=== PATIENT | male | born 1960 ===

== ENCOUNTER 2020-12-01 15:17 | Emergency (ER) | payer BC ==
[2020-12-01] MEDS ORDERED: Sodium Chloride 0.9% 10 ML Syringe FLUSH PRN (15:35)
--- NOTE | 2020-12-01 15:35 | EDM.PDOC ---
ED HPI GENERAL MEDICAL PROBLEM - General Chief Complaint: Abdominal Pain Stated Complaint: ABDOMINAL DISCOMFORT Time Seen by Provider: 12/01/20 15:25 Source of Information: Reports: Patient, Family (). Denies: Old Records ( no [facility] records available ) History Limitations: Reports: No Limitations - History of Present Illness INITIAL COMMENTS - FREE TEXT/NARRATIVE: The patient was brought to the emergency room via private automobile by his after a brief evaluation by Addy Cruz PA-C, at the [facility] in [place], shortly prior to arrival to our facility. No blood work, x-rays, or treatment were conducted at that clinic prior to his transfer with patient also not taking any medications for his recent symptoms to this point. The patient has a 3-week history of progressive severe constipation with last good bowel movement about 4 days ago with patient having occasional mild thin watery stools since that time, including earlier this morning. He does complain of intermittent nausea with 3 episodes of emesis 2 days ago with no nausea or emesis at this time. He has nonspecific diffuse 23/10 abdominal aches with no gross hematuria, colic, or other UTI symptoms. No recent history of heartburn, significant diarrhea, melena, gross hematochezia, or any food intolerance, including fatty foods, etc.. The patient denies any chest pain/pressure, heart flutter, dizziness, orthostasis, orthopnea, diaphoresis, paresthesias, recent decreased exercise tolerance, or any other anginal-type symptoms. The patient also denies any recent fever, wheezing, etc., although nonspecific nonproductive cough and some progressive dyspnea during the last several days. He has had an unintentional 22 pound weight gain over the last 33 weeks with increasing progressive dependent edema. Onset: Gradual, Other Duration: Week(s): (3 weeks as above), Constant, Getting Worse Location: Reports: Abdomen. Denies: Head, Face, Neck, Chest, Back, Pelvis, Upper Extremity, Left, Upper Extremity, Right, Radiates to Quality: Reports: Ache Severity: Mild Improves with: Reports: None Worsens with: Reports: None Context: Reports: Other (As above). Denies: Sick Contact, Trauma Associated Symptoms: Reports: Nausea/Vomiting, Shortness of Breath. 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 [No Known Home Meds] 12/01/20 [History] Past Medical History HEENT History: Reports: Impaired Vision, Other (See Below). Denies: Allergic Rhinitis, Cataract, Glaucoma, Hard of Hearing, Head, Macular Degeneration, Otitis Media, Retinal Detachment, Sinusitis Other HEENT History: The patient does wear glasses. Cardiovascular History: Reports: Syncope, Other (See Below). Denies: Afib, Aneurysm, Arrhythmia, Blood Clots/VTE/DVT, CAD, Heart Failure, Heart Murmur, High Cholesterol, Hypertension, NM, PTCA, PVD Other Cardiovascular History: Syncopal episodes with alcohol intoxication. Respiratory History: Reports: Sleep Apnea, Other (See Below). Denies: Asthma, Bronchitis, Recurrent, COPD, Intubation, Difficult, Intubation, Previous, PE, Pneumonia, Recurrent, Pneumothorax, Pulmonary Fibrosis, TB Other Respiratory History: Patient is noncompliant with his CPAP secondary to intolerance. Gastrointestinal History: Reports: Hemorrhoids. Denies: Bowel Obstruction, Celiac Disease, Cholelithiasis, Chronic Constipation, Chronic Diarrhea, Cirrhosis, Colon Polyp, Diverticulosis, Fatty Liver, Fecal Incontinence, Gastritis, GERD, GI Bleed, Hepatitis, Helicobacter Pylori, Hiatal Hernia, Inflammatory Bowel Disease, Irritable Bowel Syndrome, Jaundice, Pancreatitis, PUD Genitourinary History: Reports: BPH. Denies: Acute Renal Failure, Chronic Renal Insuffiency, Renal Calculus, Retention, Urinary, STD, Urinary Incontinence, UTI, Recurrent Musculoskeletal History: Reports: Arthritis, Fracture, Osteoarthritis, Other (See Below). Denies: Amputation, Back Pain, Chronic, Gout, Neck Pain, Chronic, RA, SLE Other Musculoskeletal History: Right wrist fracture at about age 38 with surgeries as below. Neurological History: Reports: None. Denies: Alzheimers Disease, Cerebral Aneurysms, Concussion, Headaches, Chronic, Head Trauma, Migraines, MS, Neuropathy, Diabetic, Neuropathy, Peripheral, Parkinson's, Seizure, TIA Psychiatric History: Reports: Addiction, Anxiety, Depression, Other (See Below). Denies: Abuse, Victim of, ADD, ADHD, Alzheimers Disease, Dementia, Psych Hospitalization(s), PTSD, Suicide Attempt, Suicidal Ideation Other Psychiatric History: History of alcohol abuse for about 15 years with outpatient alcohol treatment and no alcohol use since 1990. Endocrine/Metabolic History: Reports: Obesity/BMI 30+. Denies: Diabetes, Type I, Diabetes, Type II, Diabetes Mellitus, Type 3c, Hypothyroidism, IDDM Hematologic History: Reports: None. Denies: Anemia, Blood Transfusion(s), Iron Deficiency Immunologic History: Reports: None. Denies: AIDS, HIV, SLE Oncologic (Cancer) History: Reports: None. Denies: Basal Cell Carcinoma, Colon, Hodgkin's Lymphoma, Leukemia, Lymphoma, Malignant Melanoma, Non-Hodgkin's Lymphoma, Prostate, Squamous Cell Carcinoma Dermatologic History: Reports: None. Denies: Eczema, Psoriasis - Infectious Disease History Infectious Disease History: Reports: Chicken Pox, Measles, Shingles (Right abdominal and back region at about age 38.). Denies: C-Difficile, Meningitis, Mononucleosis, MRSA, Mumps, Novel Coronavirus, Pertussis (Whooping Cough), Rheumatic Fever, Rubella, Scarlet Fever, TB, VRE - Past Surgical History Head Surgeries/Procedures: Reports: None HEENT Surgical History: Reports: Oral Surgery, Other (See Below). Denies: Cataract Surgery, Eye Surgery, Laser Surgery, LASIK, Myringotomy w Tube(s), Naso-Sinus Surgery, Radial Keratotomy, Tonsillectomy Other HEENT Surgeries/Procedures: Multiple teeth extractions. Cardiovascular Surgical History: Reports: None. Denies: Varicose Respiratory Surgical History: Reports: None. Denies: Thoracentesis GI Surgical History: Reports: None. Denies: Appendectomy, Cholecystectomy, Colonoscopy, EGD, Hernia, Abdominal, Hernia, Inguinal, Hernia Repair/Other Male Surgical History: Reports: None. Denies: Circumcision, TURP- Transurethral Resection of Prostate, Vasectomy Endocrine Surgical History: Reports: None. Denies: Thyroid Biopsy Neurological Surgical History: Reports: None. Denies: C-Spine, Discectomy, Laminectomy, Lumbar Spine, Sacral Spine, Spinal Fusion, Thoracic Spine, Vertebroplasty Musculoskeletal Surgical History: Reports: ORIF, Other (See Below). Denies: Arthroscopic Knee, Arthroscopic Procedure, Carpal Tunnel, Ganglion Cyst, Joint Replacement, Shoulder Replacement, Shoulder Surgery Other Musculoskeletal Surgeries/Procedures:: ORIF x2 of right wrist fracture at age 38. Oncologic Surgical History: Reports: None Dermatological Surgical History: Reports: None - Past Imaging History Past Imaging History: Reports: None Social & Family History - Family History HEENT: Reports: Cataract, Macular Degeneration, Other (See Below). Denies: Glaucoma, Retinal Detachment Other HEENT Family History: Mother with cataracts and macular degeneration. Cardiac: Reports: Arrhythmia, CAD, High Cholesterol, Hypertension, NM, Pacemaker, Other (See Below). Denies: Afib, Aneurysm, Blood Clots/VTE/DVT, Heart Failure, Heart Murmur, PVD/COD, Syncope Other Cardiac Family History: Father with history of possible NM in his 60s with no PTCA/stent or CABG, however possible unknown type of cardiac arrhythmia requiring pacemaker at that time. Sister with hypertension and hyperlipidemia. Respiratory: Reports: None. Denies: Asthma, COPD, PE, Pneumothorax, Sleep Apnea GI: Reports: GI bleed, PUD, Other (See Below). Denies: Celiac Disease, Cholelithiasis, Colon Polyps, Inflammatory Bowel Disease, Irritable Bowel Syndrome Other GI Family History: Father with peptic ulcer disease and upper GI bleed with no transfusions required. : Reports: None. Denies: Renal Calculus, Renal Disease/Insufficiency OBGYN: Reports: None Musculoskeletal: Reports: None. Denies: Arthritis, Gout, RA, SLE Neurological: Reports: None. Denies: Alzheimers Disease, Cerebral Aneurysms, CVA, Dementia, Migraines, MS, Parkinson's, Seizure, TIA, Vertigo Psychiatric: Reports: None. Denies: Abuse, Victim of, ADD, ADHD, Anxiety, Depression, Psych Hospitalization(s), PTSD, Suicide Attempt Endocrine/Metabolic: Reports: None. Denies: Diabetes, Type I, Diabetes, type II, Diabetes Mellitus, Type 3c, Hypothyroidism, IDDM Hematologic: Reports: None. Denies: Anemia Immunologic: Reports: None. Denies: AIDS, HIV, SLE Dermatologic: Reports: None. Denies: Eczema, Psoriasis Oncologic: Reports: Lung, Metastatic, Other (See Below). Denies: Cervix, Colon, Esophageal, Hodgkin's Lymphoma, Leukemia, Lymphoma, Non-Hodgkin's Lymphoma, Prostate, Renal, Skin Other Oncologic Family History: Mother with fatal lung cancer with adrenal metastases-? at age 76 with history of previous tobacco use. - Tobacco Use Tobacco Use Status *Q: Former Tobacco User Tobacco Use Within Last Twelve Months: No Years of Tobacco use: 22 Packs/Tins Daily: 1 Packs/Tins Daily Comment: Smoked between ages 11 and 33 with no use since 1995. Used Tobacco, but Quit: Yes Smoking Cessation Information Provided To Patient: No Second Hand Smoke Exposure: No Second Hand Smoke Education Provided: No - Caffeine Use Caffeine Use: Reports: Coffee (3 cups/day), Soda (34 sodas per week). Denies: Energy Drinks, Tea - Alcohol Use Alcohol Use History: Yes Days Per Week of Alcohol Use: 0 Number of Drinks Per Day Comment: Alcohol abuse history as above. Alcohol Use in Last Twelve Months: No - Recreational Drug Use Recreational Drug Use: Yes Drug Use in Last 12 Months: Yes Recreational Drug Type: Reports: Marijuana/Hashish (Heavily during his periods of alcohol abuse with only 2 times per year currently). 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 ED EXAM, GI/ABD - Physical Exam Exam: See Below Exam Limited By: No Limitations General Appearance: Alert, WD/WN, Moderate Distress Eyes: Bilateral: Normal Appearance (The patient is wearing glasses. No vertigo or nystagmus), EOMI (PERRLA) Ears: Normal External Exam, Normal Canal, Hearing Grossly Normal, Normal TMs Nose: Normal Inspection, Normal Mucosa, No Blood Throat/Mouth: Normal Lips, Normal Gums, Normal Oropharynx, Normal Voice, No Airway Compromise. No: Normal Teeth (Multiple missing teeth with additional broken teeth and caries into the gumline but no acute drainage, abscess, etc.), Dysphagia, Inflammation, Perioral Cyanosis Head: Atraumatic, Normocephalic. No: Facial Swelling, Facial Tenderness, Sinus Tenderness Neck: Normal Inspection, Supple, Non-Tender, Full Range of Motion. No: Carotid Bruit Respiratory/Chest: No Respiratory Distress, No Accessory Muscle Use, Chest Non- Tender, Rales (Mild bilateral basilar). No: Rhonchi, Wheezing, Pleural Rub, Accessory Muscle Use, Retractions Cardiovascular: Normal Peripheral Pulses, No Gallop, No JVD, No Murmur, No Rub, Extra Beats (PVCs versus PACs with aberrant conduction by monitor), Irregularly Irregular. No: Gallop/S3, Gallop/S4, Friction Rub GI/Abdominal Exam: No Abnormal Bruit, No Mass, Distended (Moderate to severe), Tender (Mild nonspecific diffuse palpation pain), Abnormal Bowel Sounds (Diffuse decreased breath sounds), Other (Obese. Abdominal anasarca.). No: Guarding, Rigid, Rebound (Male) Exam: Deferred Rectal (Males) Exam: Deferred Back Exam: Normal Inspection, Full Range of Motion. No: CVA Tenderness (L), CVA Tenderness (R), Muscle Spasm Extremities: Normal Range of Motion, Non-Tender, Normal Capillary Refill, Pedal Edema (+2 bilateral pedal/pretibial edema). No: Brandi's Sign Neurological: Alert, Oriented, CN II-XII Intact, Normal Cognition, Normal Gait, Normal Reflexes (Negative Babinski's), No Motor/Sensory Deficits Psychiatric: Normal Affect, Normal Mood Skin Exam: Warm, Intact, Normal Color, No Rash, Wound/Incision (Minimal drainage from umbilicus from patient's previous scratching). No: Diaphoretic Lymphatic: No Adenopathy #1 Interpretation EKG Date: 12/01/20 Time: 15:38 Rhythm: A-Fib (With occasional PVCs versus PACs with aberrant conduction) Rate (Beats/Min): 150 [place]: LAD-Left [place] Deviation (Extended left) P-Wave: Variable QRS: Normal (0.08 seconds) ST-T: Normal QT: Normal TX/PQ Interval: Variable Comparison: NA - No Prior EKG EKG Interpretation Comments: 1. No acute ischemic changes 2. Atrial fibrillation with rapid ventricular response 3. PVCs versus PACs with aberrant conduction #2 Interpretation EKG Date: 12/01/20 Time: 17:23 Rhythm: A-Fib Rate (Beats/Min): 126 [place]: RAD-Right [place] Deviation (Change from previous extended left cardiac axis) P-Wave: Variable QRS: Normal (0.08 seconds) ST-T: Normal QT: Normal TX/PQ Interval: Variable with extreme poor R wave progression in the anterior leads Comparison: Change From Previous EKG (As above since 15:38 hours today) EKG Interpretation Comments: 1. No acute ischemic changes 2. Atrial fibrillation with improved tachycardia and resolved PVCs Course - Vital Signs Last Recorded V/S: Last Vital Signs Temp 36.3 C 12/01/20 15:22 Pulse 140 H 12/01/20 18:00 Resp 23 H 12/01/20 18:00 BP 117/85 12/01/20 18:00 Pulse Ox 95 12/01/20 16:00 Vital Signs - 24 hr 12/01/20 12/01/20 12/01/20 15:22 15:36 16:00 Temperature [ 36.3 C Temporal] Pulse, Peripheral Pulse, 163 H 66 136 H Peripheral [ Left Pulse Oximetry] Respiratory 14 20 Rate Blood Pressure Blood Pressure 125/90 130/76 [Left Upper Arm ] O2 Sat by Pulse 96 95 Oximetry 12/01/20 12/01/20 12/01/20 16:30 16:39 17:25 Temperature [ Temporal] Pulse, 128 H 120 H Peripheral Pulse, 123 H Peripheral [ Left Pulse Oximetry] Respiratory 24 H Rate Blood Pressure 134/105 H 98/70 Blood Pressure 117/78 [Left Upper Arm ] O2 Sat by Pulse Oximetry 12/01/20 12/01/20 12/01/20 17:37 17:45 18:00 Temperature [ Temporal] Pulse, Peripheral Pulse, 150 H 93 140 H Peripheral [ Left Pulse Oximetry] Respiratory 22 H 21 H 23 H Rate Blood Pressure Blood Pressure 100/82 112/87 117/85 [Left Upper Arm ] O2 Sat by Pulse Oximetry - Orders/Labs/Meds Orders: Active Orders 24 hr Category Date Time Status Cardiac Monitoring [RC] . DIRECTED Care 12/01/20 15:36 Active EKG Documentation Completion [RC] ASDIRECTED Care 12/01/20 15:37 Active EKG Documentation Completion [RC] ASDIRECTED Care 12/01/20 17:21 Active Peripheral IV Care [RC] . DIRECTED Care 12/01/20 15:35 Active Nothing Per Oral Diet [DIET] Diet 12/01/20 Breakfast Active Abdomen Series w Chest 1V [CR] Stat Exams 12/01/20 15:35 Taken CULTURE BLOOD [BC] Stat Lab 12/01/20 15:48 Received CULTURE BLOOD [BC] Stat Lab 12/01/20 15:55 Received CULTURE URINE [RM] Stat Lab 12/01/20 15:35 Ordered DRUG SCREEN, URINE [URCHEM] Stat Lab 12/01/20 15:37 Ordered MISCELLANEOUS CULT [MREF] Routine Lab 12/01/20 16:08 Received UA W/MICROSCOPIC [URIN] Stat Lab 12/01/20 15:35 Ordered Enoxaparin [Lovenox] Med 12/01/20 16:45 Active 100 mg SUBCUT DAILY Sodium Chloride 0.9% [Saline Flush] Med 12/01/20 15:35 Active 10 ml FLUSH ASDIRECTED PRN Blood Culture x2 Reflex Set [OM.PC] Urgent Oth 12/01/20 15:35 Ordered Obtain Past Medical Record [OM.PC] Urgent Oth 12/01/20 15:35 Active Peripheral IV Insertion Adult [OM.PC] Stat Oth 12/01/20 15:35 Ordered Resuscitation Status Stat Resus Stat 12/01/20 15:35 Ordered Medication Orders Enoxaparin Sodium (Enoxaparin 100 Mg/1 Ml Syringe) 100 mg SUBCUT DAILY GA Last Admin: 12/01/20 16:44 Dose: 100 mg Documented by: SOFYA Sodium Chloride (Sodium Chloride 0.9% 10 Ml Syringe) 10 ml FLUSH ASDIRECTED PRN PRN Reason: Keep Vein Open Labs: Laboratory Tests 12/01/20 12/01/20 12/01/20 Range/Units 15:48 15:48 15:48 WBC 10.1 (4.0-10.2) K/uL RBC 5.80 H (4.33-5.41) M/uL Hgb 16.5 (13.1-16.8) g/dL Hct 50.6 H (39.0-49.0) % MCV 87.2 (84.0-98.0) fL MCH 28.4 (28.2-33.3) pg MCHC 32.6 (31.7-36.0) g/dL RDW 16.0 H (11.2-14.1) % Plt Count 177 (150-350) K/uL Neut % (Auto) 64.0 (45.0-80.0) % Lymph % (Auto) 21.3 (10.0-50.0) % Eaton % (Auto) 13.4 (2.0-14.0) % Eos % (Auto) 1.0 (0.0-5.0) % Baso % (Auto) 0.3 (0.0-2.0) % Neut # (Auto) 6.43 (1.40-7.00) K/uL Lymph # (Auto) 2.14 (0.50-3.50) K/uL Eaton # (Auto) 1.35 H (0.00-1.00) K/uL Eos # (Auto) 0.10 (0.00-0.50) K/uL Baso # (Auto) 0.03 (0.00-0.20) K/uL PT 12.1 H (9.5-12.0) SEC INR 1.2 APTT 23.4 L (24.5-32.8) SEC D-Dimer, Quantitative (0-400) ng/mL Sodium 134 L (136-145) mmol/L Potassium 4.3 (3.5-5.1) mmol/L Chloride 98 (98-107) mmol/L Carbon Dioxide 25.6 (21.0-32.0) mmol/L BUN 32 H (7-18) mg/dL Creatinine 1.54 H (0.51-1.17) mg/dL Est Cr Clr Drug Dosing 46.50 mL/min Estimated GFR (MDRD) 46 mL/min Glucose 185 H (70-99) mg/dL Lactic Acid (0.4-2.0) mmol/L Uric Acid 11.8 H (2.6-7.2) mg/dL Calcium 8.6 (8.5-10.1) mg/dL Magnesium 2.4 (1.8-2.4) mg/dL Total Bilirubin 1.7 H (0.2-1.0) mg/dL AST 50 H (15-37) U/L ALT 57 (12-78) U/L Alkaline Phosphatase 202 H (46-116) IU/L Creatine Kinase 552 H (26-308) U/L Creatine Kinase Index 1.0 (0.0-2.5) % CK-MB (CK-2) 5.50 H* (0.00-3.60) ng/mL Troponin I 0.122 H* (0.000-0.056) ng/mL NT-Pro-B Natriuret Pep 5112 H (0-125) pg/mL Total Protein 6.8 (6.4-8.2) g/dL Albumin 3.2 L (3.4-5.0) g/dL Amylase 49 (25-115) U/L Lipase 221 (73-393) U/L TSH, Ultra Sensitive (0.358-3.740) mIU/mL Ethyl Alcohol 0.003 (0.000-0.080) g/dL SARS-CoV-2 RNA (DENIA) (NEGATIVE) 12/01/20 12/01/20 12/01/20 Range/Units 15:48 15:48 15:48 WBC (4.0-10.2) K/uL RBC (4.33-5.41) M/uL Hgb (13.1-16.8) g/dL Hct (39.0-49.0) % MCV (84.0-98.0) fL MCH (28.2-33.3) pg MCHC (31.7-36.0) g/dL RDW (11.2-14.1) % Plt Count (150-350) K/uL Neut % (Auto) (45.0-80.0) % Lymph % (Auto) (10.0-50.0) % Eaton % (Auto) (2.0-14.0) % Eos % (Auto) (0.0-5.0) % Baso % (Auto) (0.0-2.0) % Neut # (Auto) (1.40-7.00) K/uL Lymph # (Auto) (0.50-3.50) K/uL Eaton # (Auto) (0.00-1.00) K/uL Eos # (Auto) (0.00-0.50) K/uL Baso # (Auto) (0.00-0.20) K/uL PT (9.5-12.0) SEC INR APTT (24.5-32.8) SEC D-Dimer, Quantitative 1910 H (0-400) ng/mL Sodium (136-145) mmol/L Potassium (3.5-5.1) mmol/L Chloride (98-107) mmol/L Carbon Dioxide (21.0-32.0) mmol/L BUN (7-18) mg/dL Creatinine (0.51-1.17) mg/dL Est Cr Clr Drug Dosing mL/min Estimated GFR (MDRD) mL/min Glucose (70-99) mg/dL Lactic Acid 2.2 H (0.4-2.0) mmol/L Uric Acid (2.6-7.2) mg/dL Calcium (8.5-10.1) mg/dL Magnesium (1.8-2.4) mg/dL Total Bilirubin (0.2-1.0) mg/dL AST (15-37) U/L ALT (12-78) U/L Alkaline Phosphatase (46-116) IU/L Creatine Kinase (26-308) U/L Creatine Kinase Index (0.0-2.5) % CK-MB (CK-2) (0.00-3.60) ng/mL Troponin I (0.000-0.056) ng/mL NT-Pro-B Natriuret Pep (0-125) pg/mL Total Protein (6.4-8.2) g/dL Albumin (3.4-5.0) g/dL Amylase (25-115) U/L Lipase (73-393) U/L TSH, Ultra Sensitive 3.245 (0.358-3.740) mIU/mL Ethyl Alcohol (0.000-0.080) g/dL SARS-CoV-2 RNA (DENIA) (NEGATIVE) 12/01/20 Range/Units 16:29 WBC (4.0-10.2) K/uL RBC (4.33-5.41) M/uL Hgb (13.1-16.8) g/dL Hct (39.0-49.0) % MCV (84.0-98.0) fL MCH (28.2-33.3) pg MCHC (31.7-36.0) g/dL RDW (11.2-14.1) % Plt Count (150-350) K/uL Neut % (Auto) (45.0-80.0) % Lymph % (Auto) (10.0-50.0) % Eaton % (Auto) (2.0-14.0) % Eos % (Auto) (0.0-5.0) % Baso % (Auto) (0.0-2.0) % Neut # (Auto) (1.40-7.00) K/uL Lymph # (Auto) (0.50-3.50) K/uL Eaton # (Auto) (0.00-1.00) K/uL Eos # (Auto) (0.00-0.50) K/uL Baso # (Auto) (0.00-0.20) K/uL PT (9.5-12.0) SEC INR APTT (24.5-32.8) SEC D-Dimer, Quantitative (0-400) ng/mL Sodium (136-145) mmol/L Potassium (3.5-5.1) mmol/L Chloride (98-107) mmol/L Carbon Dioxide (21.0-32.0) mmol/L BUN (7-18) mg/dL Creatinine (0.51-1.17) mg/dL Est Cr Clr Drug Dosing mL/min Estimated GFR (MDRD) mL/min Glucose (70-99) mg/dL Lactic Acid (0.4-2.0) mmol/L Uric Acid (2.6-7.2) mg/dL Calcium (8.5-10.1) mg/dL Magnesium (1.8-2.4) mg/dL Total Bilirubin (0.2-1.0) mg/dL AST (15-37) U/L ALT (12-78) U/L Alkaline Phosphatase (46-116) IU/L Creatine Kinase (26-308) U/L Creatine Kinase Index (0.0-2.5) % CK-MB (CK-2) (0.00-3.60) ng/mL Troponin I (0.000-0.056) ng/mL NT-Pro-B Natriuret Pep (0-125) pg/mL Total Protein (6.4-8.2) g/dL Albumin (3.4-5.0) g/dL Amylase (25-115) U/L Lipase (73-393) U/L TSH, Ultra Sensitive (0.358-3.740) mIU/mL Ethyl Alcohol (0.000-0.080) g/dL SARS-CoV-2 RNA (DENIA) Negative (NEGATIVE) Meds: Medications Generic Name Dose Route Start Last Admin Trade Name Annette PRN Reason Stop Dose Admin Enoxaparin Sodium 100 mg 12/01/20 16:45 12/01/20 16:44 Enoxaparin 100 Mg/1 Ml Syringe SUBCUT 100 mg DAILY GA Administration Sodium Chloride 10 ml 12/01/20 15:35 Sodium Chloride 0.9% 10 Ml Syringe FLUSH ASDIRECTED PRN Keep Vein Open Discontinued Medications Generic Name Dose Route Start Last Admin Trade Name Annette PRN Reason Stop Dose Admin Ceftriaxone Sodium 2 gm 12/01/20 17:02 12/01/20 18:15 Ceftriaxone 2 Gm Vial IVPUSH 12/01/20 17:03 2 gm ONETIME ONE Administration Diltiazem HCl 20 mg 12/01/20 15:54 12/01/20 15:57 Diltiazem 25 Mg/5 Ml Sdv IVPUSH 12/01/20 15:55 20 mg ONETIME ONE Administration Diltiazem HCl 120 mg 12/01/20 16:56 12/01/20 17:25 Diltiazem 120 Mg Cap.Cd PO 12/01/20 16:57 120 mg ONETIME ONE Administration Famotidine 40 mg 12/01/20 15:35 12/01/20 15:48 Famotidine 20 Mg/2 Ml Sdv IVPUSH 12/01/20 15:36 40 mg ONETIME ONE Administration Furosemide 60 mg 12/01/20 16:39 12/01/20 16:41 Furosemide 40 Mg/4 Ml Vial IVPUSH 12/01/20 16:40 60 mg NOW ONE Administration Metronidazole 500 mg/ Premix 100 mls @ 100 mls/hr 12/01/20 17:02 12/01/20 17:25 IV 12/01/20 18:01 100 mls/hr ONETIME ONE Administration Lactated Ringer's 1,000 mls @ 999 mls/hr 12/01/20 17:13 Ringers, Lactated IV 12/01/20 18:13 .BOLUS ONE Metoprolol Tartrate 2.5 mg 12/01/20 16:36 12/01/20 16:39 Metoprolol Tartrate 5 Mg/5 Ml Sdv IVPUSH 12/01/20 16:37 2.5 mg ONETIME ONE Administration Ondansetron HCl 4 mg 12/01/20 15:35 12/01/20 17:24 Ondansetron 4 Mg/2 Ml Sdv IVPUSH 12/01/20 15:36 Not Given ONETIME ONE Ondansetron HCl 4 mg 12/01/20 17:11 12/01/20 17:22 Ondansetron 4 Mg/2 Ml Sdv IVPUSH 12/01/20 17:12 4 mg ONETIME ONE Administration Pantoprazole Sodium 40 mg 12/01/20 15:35 12/01/20 15:48 Pantoprazole 40 Mg Vial IVPUSH 12/01/20 15:36 40 mg ONETIME ONE Administration - Radiology Interpretation Free Text/Narrative:: 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 Acute abdominal x-ray shows moderate cardiomegaly and CHF with additional probable pulmonary obstructive disease. Nonspecific increased bowel gaseous pattern with moderate stool or somewhat suboptimal film secondary to his obesity. No free air, ileus, obstruction, fluid levels, or pulmonary infiltrates. Departure - Departure Time of Disposition: 18:30 Disposition: DC/Tfer to [facility], [facility] 02 Clinical Impression: Caries, Atrial fibrillation with RVR, PVCs (premature ventricular contractions), Anasarca, D-dimer, elevated, Elevated CK, Hyponatremia, Renal insufficiency, Elevated LFTs, Hyperuricemia, Elevated lactic acid level Cellulitis Qualifiers: Site of cellulitis: trunk Site of cellulitis of trunk: umbilicus Qualified Code(s): L03.316 - Cellulitis of umbilicus Abdominal pain Qualifiers: Abdominal location: generalized Qualified Code(s): R10.84 - Generalized abdominal pain CHF (congestive heart failure) Qualifiers: Heart failure type: unspecified Heart failure chronicity: acute Qualified Code(s): I50.9 - Heart failure, unspecified COPD (chronic obstructive pulmonary disease) Qualifiers: COPD type: emphysema Emphysema type: panlobular Qualified Code(s): J43.1 - Panlobular emphysema - Discharge Information *PRESCRIPTION DRUG MONITORING PROGRAM REVIEWED*: Not Applicable *COPY OF PRESCRIPTION DRUG MONITORING REPORT IN PATIENT FRANCIS: Not Applicable Referrals: PCP,None [Primary Care Provider] - Forms: ED Department Discharge, Interfacility Transfer [facility] Sepsis Event Note (ED) - Evaluation Sepsis Screening Result: No Definite Risk - Focused Exam Vital Signs: Vital Signs Temp Pulse Pulse Resp BP BP Pulse Ox 12/01/20 18:00 140 H 23 H 117/85 12/01/20 17:45 93 21 H 112/87 12/01/20 17:37 150 H 22 H 100/82 12/01/20 17:25 120 H 98/70 12/01/20 16:39 128 H 134/105 H 12/01/20 16:30 123 H 24 H 117/78 12/01/20 16:00 136 H 20 130/76 95 12/01/20 15:36 66 12/01/20 15:22 36.3 C 163 H 14 125/90 96 - Problem List & Annotations (1) Abdominal pain SNOMED Code(s): 87700524 Code(s): R10.9 - UNSPECIFIED ABDOMINAL PAIN Status: Acute Priority: High Current Visit: Yes Onset Date: ~12/01/20 Annotation/Comment:: Telephone consultation at 5:05 PM with [facility] in [place] with no beds available in their facility. I have had another ER patient since about 9 AM with no beds in that facility since that time. Subsequent telephone consultation at 5:15 PM with [facility] with no beds in that facility since earlier this morning. Subsequent telephone consultation at 5:[address] Little, hospitalist at [facility], who does accept the patient for direct admission, with no further treatment recommendations given. Ambulance transfer with waterproofing mixer accompaniment. Vital signs and clinical exam were stable at time of patient's transfer. Note diffuse generalized abdominal pain likely secondary to threatening bowel obstruction. Official x-ray report is in agreement with my assessment with suboptimal films. Blood cultures x2 have been collected. High- dose IV Rocephin and additional IV Flagyl therapy initiated in the emergency room. Secondary to his obesity the patient is not a candidate for CT scan of the abdomen and pelvis in our facility, with this evaluation to be conducted by accepting providers. High-dose IV Pepcid and IV Protonix were also given in the emergency room as GI prophylaxis. He denies any nausea at initial arrival in the emergency room with no Zofran given, although this did occur later in his care with IV Zofran given. Qualifiers: Abdominal location: generalized Qualified Code(s): R10.84 - Generalized abdominal pain (2) Atrial fibrillation with RVR SNOMED Code(s): 561689483261751 Code(s): I48.91 - UNSPECIFIED ATRIAL FIBRILLATION Status: Acute Priority: High Current Visit: Yes Onset Date: 12/01/20 Annotation/Comment:: IV diltiazem given as above with initial administration of 10 mg and subsequent additional 10 mg dose with total dose of 20 mg IV. Additional IV Lopressor therapy was required. Oral Cardizem CD therapy was started in the emergency room. No chest pain or anginal complaints with chest pain protocol not initiated in the emergency room. Mildly increased troponin I likely secondary to his CHF with elevated CK and CK-MB, however normal cardiac index. EKG does not indicate any acute ischemia. Repeat EKG was stable. Note some mild hypotension secondary to above treatment with 1 L IV bolus of LR given in the emergency room, in spite of his CHF. Subcu Lovenox was given in our emergency room as below. Cardiology consultation with likely initiation of standard rule out NM orders, etc. (3) CHF (congestive heart failure) SNOMED Code(s): 05129413 Code(s): I50.9 - HEART FAILURE, UNSPECIFIED Status: Acute Priority: High Current Visit: Yes Onset Date: 12/01/20 Annotation/Comment:: Significant BNP elevation with additional recent weight gain and anasarca as above. High- dose IV Lasix initiated in the emergency room. Consider echocardiogram in the near future by accepting providers. Qualifiers: Heart failure type: unspecified Heart failure chronicity: acute Qualified Code(s): I50.9 - Heart failure, unspecified (4) D-dimer, elevated SNOMED Code(s): 825210726 Code(s): R79.89 - OTHER SPECIFIED ABNORMAL FINDINGS OF BLOOD CHEMISTRY Status: Acute Priority: High Current Visit: Yes Onset Date: 12/01/20 Annotation/Comment:: No direct clinical evidence of DVT or PE. Subcu Lovenox initiated at the VTE dose in the emergency room. Secondary to his obesity he is not a candidate for CTA of the chest in this facility. Consider venous Doppler studies of the lower extremities. (5) Elevated lactic acid level SNOMED Code(s): 5031534 Code(s): R79.89 - OTHER SPECIFIED ABNORMAL FINDINGS OF BLOOD CHEMISTRY Status: Acute Priority: High Current Visit: Yes Onset Date: 12/01/20 Annotation/Comment:: Mild lactic acid elevation with no clinical evidence of sepsis despite his tachycardia, etc. as above. Blood cultures x2 were collected. IV Rocephin and IV Flagyl given as above. Consider repeat lactic acid level by accepting providers after arrival to his facility. In spite of his CHF 1 L IV bolus of lactated Ringer's given as above. (6) Anasarca SNOMED Code(s): 765318711, 665125978 Code(s): R60.1 - GENERALIZED EDEMA Status: Acute Priority: High Current Visit: Yes Onset Date: 12/01/20 Annotation/Comment:: Note significant anasarca and recent weight gain secondary to his CHF. Note previous history of distant alcohol abuse, however no history of ascites, etc. and no use since 1990. (7) PVCs (premature ventricular contractions) SNOMED Code(s): 98612888 Code(s): I49.3 - VENTRICULAR PREMATURE DEPOLARIZATION Status: Acute Priority: Medium Current Visit: Yes Onset Date: 12/01/20 Annotation/Comment:: PVCs versus PACs with aberrant conduction. Nonsymptomatic. IV Lopressor and IV/oral diltiazem given as above. Consider event monitor, cardiology consultation, etc. depending on his clinical course (8) Caries SNOMED Code(s): 20593734 Code(s): K02.9 - DENTAL CARIES, UNSPECIFIED Status: Chronic Priority: Medium Current Visit: Yes Annotation/Comment:: Multiple caries and missing teeth with no evidence of acute abscesses. Patient should follow-up with his dentist RACHEAL once his current condition stabilizes. (9) Cellulitis SNOMED Code(s): 661744093 Code(s): L03.90 - CELLULITIS, UNSPECIFIED Status: Acute Priority: Medium Current Visit: Yes Onset Date: ~12/01/20 Annotation/Comment:: Patient has been picking lint out of his umbilical area with mild superficial injury. Wound specimen collected for culture and sensitivity and Gram stain. No evidence of significant infection, including lymphangitis, etc.. Noted initiation of IV Rocephin as above. Qualifiers: Site of cellulitis: trunk Site of cellulitis of trunk: umbilicus Quali fied Code(s): L03.316 - Cellulitis of umbilicus (10) COPD (chronic obstructive pulmonary disease) SNOMED Code(s): 95379059 Code(s): J44.9 - CHRONIC OBSTRUCTIVE PULMONARY DISEASE, UNSPECIFIED Status: Chronic Priority: Medium Current Visit: Yes Onset Date: ~12/01/20 Annotation/Comment:: COPD by chest x-ray with no true recent bronchitic type symptoms, fever, etc. No current or previous medical therapy. Patient did not get an influenza booster or Covid immunization this past season and has not had Covid to this point. Consider PFTs once his cardiac status has improved. Note distant tobacco use history. Qualifiers: COPD type: emphysema Emphysema type: panlobular Qualified Code(s): J43.1 - Panlobular emphysema (11) Elevated CK SNOMED Code(s): 974277209 Code(s): R74.8 - ABNORMAL LEVELS OF OTHER SERUM ENZYMES Status: Acute Priority: High Current Visit: Yes Onset Date: 12/01/20 Annotation/Comment :: As above. No direct evidence of rhabdomyolysis. (12) Elevated LFTs SNOMED Code(s): 455244467 Code(s): R79.89 - OTHER SPECIFIED ABNORMAL FINDINGS OF BLOOD CHEMISTRY Status: Acute Priority: High Current Visit: No Onset Date: 12/01/20 Annotation/Comment:: Secondary to CHF and/or fatty liver. Consider abdominal ultrasound and/or abdominal CT of the abdomen pelvis as above. (13) Hyperuricemia SNOMED Code(s): 70767303 Code(s): E79.0 - HYPERURICEMIA W/O SIGNS OF INFLAM ARTHRIT AND TOPHACEOUS DIS Status: Acute Priority: Medium Current Visit: Yes Onset Date: 12/01/20 Annotation/Comment:: No previous history of gout or hyperuricemia, although patient has had very limited previous preventative health care with last set of blood work about 3 years ago. (14) Hyponatremia SNOMED Code(s): 64111792 Code(s): E87.1 - HYPO-OSMOLALITY AND HYPONATREMIA Status: Acute Priority: Medium Current Visit: Yes Onset Date: 12/01/20 Annotation/Comment:: Likely secondary to his CHF. Continue to observe closely. (15) Renal insufficiency SNOMED Code(s): 630741542, 586802797 Code(s): N28.9 - DISORDER OF KIDNEY AND URETER, UNSPECIFIED Status: Acute Priority: Medium Current Visit: Yes Onset Date: 12/01/20 Annotation/Comment:: Newly diagnosed. Continue to observe closely secondary to his IV Lasix therapy. - Problem List Review Problem List Initiated/Reviewed/Updated: Yes - My Orders Last 24 Hours: My Active Orders 12/01/20 Breakfast Nothing Per Oral Diet [DIET] 12/01/20 15:35 Peripheral IV Care [RC] . DIRECTED Abdomen Series w Chest 1V [CR] Stat CULTURE URINE [RM] Stat UA W/MICROSCOPIC [URIN] Stat Sodium Chloride 0.9% [Saline Flush] 10 ml FLUSH ASDIRECTED PRN Blood Culture x2 Reflex Set [OM.PC] Urgent Obtain Past Medical Record [OM.PC] Urgent Peripheral IV Insertion Adult [OM.PC] Stat Resuscitation Status Stat 12/01/20 15:36 Cardiac Monitoring [RC] . DIRECTED 12/01/20 15:37 EKG Documentation Completion [RC] ASDIRECTED DRUG SCREEN, URINE [URCHEM] Stat 12/01/20 15:48 CULTURE BLOOD [BC] Stat 12/01/20 15:55 CULTURE BLOOD [BC] Stat 12/01/20 16:08 MISCELLANEOUS CULT [MREF] Routine 12/01/20 16:45 Enoxaparin [Lovenox] 100 mg SUBCUT DAILY 12/01/20 17:21 EKG Documentation Completion [RC] ASDIRECTED - Assessment/Plan Last 24 Hours: My Active Orders 12/01/20 Breakfast Nothing Per Oral Diet [DIET] 12/01/20 15:35 Peripheral IV Care [RC] . DIRECTED Abdomen Series w Chest 1V [CR] Stat CULTURE URINE [RM] Stat UA W/MICROSCOPIC [URIN] Stat Sodium Chloride 0.9% [Saline Flush] 10 ml FLUSH ASDIRECTED PRN Blood Culture x2 Reflex Set [OM.PC] Urgent Obtain Past Medical Record [OM.PC] Urgent Peripheral IV Insertion Adult [OM.PC] Stat Resuscitation Status Stat 12/01/20 15:36 Cardiac Monitoring [RC] . DIRECTED 12/01/20 15:37 EKG Documentation Completion [RC] ASDIRECTED DRUG SCREEN, URINE [URCHEM] Stat 12/01/20 15:48 CULTURE BLOOD [BC] Stat 12/01/20 15:55 CULTURE BLOOD [BC] Stat 12/01/20 16:08 MISCELLANEOUS CULT [MREF] Routine 12/01/20 16:45 Enoxaparin [Lovenox] 100 mg SUBCUT DAILY 12/01/20 17:21 EKG Documentation Completion [RC] ASDIRECTED Assessment:: As above Plan: As above. Extensive precautions were given to the patient and his , who are in agreement with the treatment plan. Ambulance transfer with waterproofing mixer accompaniment to [facility] in [place] as above.
[2020-12-01] MEDS: Famotidine 20 MG/2 ML SDV IVPUSH ONE (15:48)
[2020-12-01] MEDS: Pantoprazole 40 MG Vial IVPUSH ONE (15:48)
[2020-12-01] MEDS: Diltiazem 25 MG/5 ML SDV IVPUSH ONE (15:57)
[2020-12-01 16:13] LABS: PTT,PARTIAL THROMBOPLSTIN TIME 23.4 SEC (24.5-32.8)
[2020-12-01] MEDS: Metoprolol Tartrate 5 MG/5 ML SDV IVPUSH ONE (16:39)
[2020-12-01] MEDS: Furosemide 40 MG/4 ML VIAL IVPUSH ONE (16:41)
[2020-12-01] MEDS: Enoxaparin 100 MG/1 ML Syringe SUBCUT SCH (16:44)
[2020-12-01] MEDS ORDERED: Lactated Ringers 1,000 ML IV ONE (17:13)
[2020-12-01] MEDS: Ondansetron 4 MG/2 ML SDV IVPUSH ONE ×2 (17:22→17:24)
[2020-12-01] MEDS: metroNIDAZOLE/Normal Saline 500 MG in Premix Bag 1 BAG IV ONE (17:25)
[2020-12-01] MEDS: Diltiazem 120 MG Cap.CD PO ONE (17:25)
[2020-12-01] MEDS: cefTRIAXone 2 GM Vial IVPUSH ONE (18:15)
[2020-12-01 23:25] LABS: BARBITURATE SCREEN,URINE NEGATIVE (NEGATIVE); BENZODIAZEPINES SCREEN,URINE NEGATIVE (NEGATIVE); EDDP,URINE SCREEN NEGATIVE (NEGATIVE); TCA SCREEN,URINE NEGATIVE (NEGATIVE); THC SCREEN,URINE 50 NG/ML NEGATIVE (NEGATIVE)
== END 2020-12-01 18:28 ==
LOC: LL.ED 15:17
DX: L03.316 Cellulitis of umbilicus (principal); K02.9 Dental caries, unspecified; I48.91 Unspecified atrial fibrillation; I49.3 Ventricular premature depolarization; R60.1 Generalized edema; R74.8 Abnormal levels of other serum enzymes; E87.1 Hypo-osmolality and hyponatremia; N28.9 Disorder of kidney and ureter, unspecified; E79.0 Hyperuricemia without signs of inflammatory arthritis and tophaceous disease; R74.01 Elevation of levels of liver transaminase levels; I50.9 Heart failure, unspecified; J43.1 Panlobular emphysema; R00.0 Tachycardia, unspecified; Z87.891 Personal history of nicotine dependence; E66.9 Obesity, unspecified; Z68.43 Body mass index [BMI] 50.0-59.9, adult; Z20.822 Contact with and (suspected) exposure to COVID-19
CPT/HCPCS: 36415; 74022; 80053; 80305-QW; 80307; 81001; 82150; 82550; 82553; 83605; 83690; 83735; 83880; 84443; 84484; 84550; 85025; 85379; 85610; 85730; 87040; 87070; 87086; 87205; 93005; 93010; 96365; 96372; 96375; 99284; 99285-25; A9270-GY; C9113; J0696; J1650; J1940; J2405; J3490; U0002